=== PATIENT | female | born 1995 | race Caucasian/White ===

== ENCOUNTER 2017-07-14 17:00 | Emergency (ER) | payer OTHER ==
[~2017-07-14] VITALS: Ht 162.6 cm; Wt 48.1 kg
[~2017-07-14 17:00] MED LIST: ACET-1693 PO
[2017-07-14 17:02] VITALS: Ht 162.6 cm; Wt 48.1 kg
[2017-07-14] MEDS ORDERED: ACETAMINOPHEN IV 100 ML IV STA (17:20)
[2017-07-14] MEDS ORDERED: ONDANSETRON INJ 2 MG/ML 2 ML VIAL IV STA (17:20)
[2017-07-14] MEDS ORDERED: KETOROLAC TROMETHAMINE 30 MG/ML VIAL IV STA (17:20)
[2017-07-14] MEDS ORDERED: [UNRECOGNIZED DRUG - OTHER] PO (17:28)
[2017-07-14] MEDS ORDERED: SODIUM CHLORIDE 0.9% 1000ML 1,000 ML IV ONE ×2 (17:30→19:15)
--- NOTE | 2017-07-14 17:33 | EMERGENCY ROOM VISIT NOTE ---
History First contact with patient: 17:05 Chief Complaint: FLU LIKE SX Stated Complaint: FEVER, BOYLE History of Present Illness The patient is a 22 year old female who presents to the Emergency Room with complaints of flulike symptoms since this morning. The patient complains of a headache, body aches and a sore throat. She was seen at [facility]. An influenza and strep swab were performed and negative. She was prescribed azithromycin, which she has tried taking, but she threw it up. She has vomited 3 times today. She has not taken her temperature at home. She has also tried Tylenol, but also could not keep that down. She denies any sick contacts. She did get her influenza vaccine this year. Review of Systems 10 system review performed and negative unless noted in HPI or below Past Medical/Surgical History Medical Problems: (1) No Known Active Medical Problems (2) URI (upper respiratory infection) Family History FH: HTN (hypertension) FH: cancer FH: diabetes mellitus FH: heart disease Social History Smoking Status: Never Smoker Marital Status: single Housing Status: lives with roommate Occupation Status: [employer] student Current/Historical Medications Scheduled Ondasetron Odt (Zofran Odt), 4 MG SL Q6H Oseltamivir (Tamiflu), 75 MG PO BID Scheduled PRN Acetaminophen Tab (Tylenol), 2-3 TABS PO PRN UD PRN for Pain or Fever Miscellaneous Medications [Klavox], 625 MG PO Physical Exam Vital Signs Date Time Temp Pulse Resp B/P (MAP) Pulse Ox O2 Delivery O2 Flow Rate FiO2 07/14/17 20:57 37.1 93 18 90/57 100 07/14/17 19:09 37.4 100 18 93/47 98 Room Air 07/14/17 17:02 37.4 127 18 120/66 98 Room Air Physical Exam VITALS: Vitals are noted on the nurse's note and reviewed by myself. Vital signs stable. GENERAL: 22-year-old female, mildly acutely ill in appearance, SKIN: The skin was without rashes, erythema, edema, or bruising. HEAD: Normocephalic atraumatic. EYES: . Conjunctivae without injection, sclerae without icterus. Extraocular movements intact. MOUTH: Mucous membranes slightly dry. Tonsils are not enlarged. Pharynx without erythema or exudate. Uvula midline. Airway patent. Tongue does not deviate. NECK: Supple without nuchal rigidity. No lymphadenopathy. Cervical spine is nontender. No JVD. HEART: Slightly tachycardic, regular rhythm without murmurs gallops or rubs. LUNGS: Clear to auscultation bilaterally without wheezes, rales or rhonchi. No accessory muscle use. ABDOMEN: Positive bowel sounds x 4.Soft, nontender, without organomegaly. No guarding or rebound tenderness. MUSCULOSKELETAL: No muscle atrophy, erythema, or edema noted. Strength 5/5 throughout. NEURO: Patient was alert and oriented to person place and time. Normal sensation to touch. No focal neurological deficits. Medical Decision & Procedures ER Provider Diagnostic Interpretation: Chest x-ray IMPRESSION: No active disease in the chest. Electronically signed by: Mac Butterfield M.D. 07/14/2017 6:10 PM Dictated Date/Time: 07/14/2017 6:10 PM The status of this report is Signed. Draft = Not yet reviewed or approved by Radiologist. Signed = Reviewed and approved by Radiologist. <AttendingPhy></AttendingPhy> <FamilyPhy>[facility]</FamilyPhy> <PrimaryPhy>[facility]</PrimaryPhy> <UnitNumber>[id number]</ UnitNumber> <VisitNumber>[id number]</VisitNumber> <PatientName>JEFFERSON PANDA</PatientName> <DateOfBirth>1995</DateOfBirth> <Location>[facility]</ Location> <ServiceDate>07/14/17</ServiceDate> <MNE>ESINDI</MNE> <OrderingPhy> Ashley Blanco PA-C</OrderingPhy Laboratory Results 07/14/17 17:13 Red Blood Count 4.69, Mean Corpuscular Volume 85.3, Mean Corpuscular Hemoglobin 29.0, Mean Corpuscular Hemoglobin Concent 34.0, Mean Platelet Volume 10.3, Neutrophils (%) (Auto) 82.6, Lymphocytes (%) (Auto) 9.1, Monocytes (%) (Auto) 7.8, Eosinophils (%) (Auto) 0.0, Basophils (%) (Auto) 0.1, Neutrophils # (Auto) 7.65, Lymphocytes # (Auto) 0.84, Monocytes # (Auto) 0.72, Eosinophils # (Auto) 0.00, Basophils # (Auto) 0.01 07/14/17 17:13 Test 07/14/17 16:20 07/14/17 17:13 Influenza Type A (RT-PCR) POS for Influ A (NEG) Influenza Type B (RT-PCR) Neg for Influ B (NEG) White Blood Count 9.26 K/uL (4.8-10.8) Red Blood Count 4.69 M/uL (4.2-5.4) Hemoglobin 13.6 g/dL (12.0-16.0) Hematocrit 40.0 % (37-47) Mean Corpuscular Volume 85.3 fL (80-100) Mean Corpuscular Hemoglobin 29.0 pg (25-34) Mean Corpuscular Hemoglobin Concent 34.0 g/dl (32-36) Platelet Count 254 K/uL (130-400) Mean Platelet Volume 10.3 fL (7.4-10.4) Neutrophils (%) (Auto) 82.6 % Lymphocytes (%) (Auto) 9.1 % Monocytes (%) (Auto) 7.8 % Eosinophils (%) (Auto) 0.0 % Basophils (%) (Auto) 0.1 % Neutrophils # (Auto) 7.65 K/uL (1.4-6.5) Lymphocytes # (Auto) 0.84 K/uL (1.2-3.4) Monocytes # (Auto) 0.72 K/uL (0.11-0.59) Eosinophils # (Auto) 0.00 K/uL (0-0.5) Basophils # (Auto) 0.01 K/uL (0-0.2) RDW Standard Deviation 42.0 fL (36.4-46.3) RDW Coefficient of Variation 13.5 % (11.5-14.5) Immature Granulocyte % (Auto) 0.4 % Immature Granulocyte # (Auto) 0.04 K/uL (0.00-0.02) Urine Color YELLOW Urine Appearance CLEAR (CLEAR) Urine pH 5.5 (4.5-7.5) Urine Specific [place] 1.022 (1.000-1.030) Urine Protein NEG (NEG) Urine Glucose (UA) NEG (NEG) Urine Ketones 2+ (NEG) Urine Occult Blood NEG (NEG) Urine Nitrite NEG (NEG) Urine Bilirubin NEG (NEG) Urine Urobilinogen NEG (NEG) Urine Leukocyte Esterase NEG (NEG) Urine Test NEG (NEG) Anion Gap 7.0 mmol/L (3-11) Est Creatinine Clear Calc Drug Dose 79.2 ml/min Estimated GFR () 112.7 Estimated GFR (Non- 97.3 BUN/Creatinine Ratio 10.6 (10-20) Calcium Level 8.9 mg/dl (8.5-10.1) Total Bilirubin 0.8 mg/dl (0.2-1) Aspartate Amino Transf (AST/SGOT) 15 U/L (15-37) Alanine Aminotransferase (ALT/SGPT) 17 U/L (12-78) Alkaline Phosphatase 62 U/L (45-117) Total Protein 8.5 gm/dl (6.4-8.2) Albumin 4.5 gm/dl (3.4-5.0) Globulin 4.0 gm/dl (2.5-4.0) Albumin/Globulin Ratio 1.1 (0.9-2) Medications Administered Medications (Trade) Dose Ordered Sig/Christoph Route Start Time Stop Time Status Last Admin Dose Admin Sodium Chloride 1,000 ml @ 999 mls/hr Q1H1M ONCE IV 07/14/17 17:30 07/14/17 18:30 DC 07/14/17 17:40 999 MLS/HR Ondansetron HCl (Zofran Inj) 4 mg NOW STAT IV 07/14/17 17:20 07/14/17 17:22 DC 07/14/17 17:40 4 MG Acetaminophen 100 ml @ 400 mls/hr ONE STAT IV 07/14/17 17:20 07/14/17 17:34 DC 07/14/17 17:41 400 MLS/HR Ketorolac Tromethamine (Toradol Inj) 30 mg NOW STAT IV 07/14/17 17:20 07/14/17 17:22 DC 07/14/17 17:40 30 MG Sodium Chloride 1,000 ml @ 999 mls/hr Q1H1M ONCE IV 07/14/17 19:15 07/14/17 20:15 DC 07/14/17 19:14 999 MLS/HR Oseltamivir Phosphate (Tamiflu Cap) 75 mg NOW STAT PO 07/14/17 19:23 07/14/17 19:24 DC 07/14/17 19:34 75 MG Ondansetron HCl (ZOFRAN ODT 4MG Home Pack) 1 homepack UD ONCE PO 07/14/17 20:30 07/14/17 20:31 DC 07/14/17 20:52 1 HOMEPACK ED Course VITALS: Vitals are noted on the nurse's note and reviewed by myself. Vital signs stable. Patient was seen and examined Vital signs including blood pressure were reviewed medications list was verified with patient Labs were obtained, and a saline lock was established The patient was medicated with Toradol 30 mg IV and Tylenol 1000 mg IV. She was also given Zofran 4 mg IV. She was hydrated with 1 L of normal saline. Upon reevaluation, the patient was feeling much better. We discussed results. She voiced understanding. Sge was hydrated with an additional 1 L of normal saline She was given 1 dose of Tamiflu 75 mg. She was also given a home pack of Zofran. She was comfortable being discharged home as she was tolerating fluids. I reviewed discharge instructions the patient. They voiced understanding and had no further questions. Medical Decision Differential diagnosis: Bronchitis, pneumonia, strep pharyngitis, viral pharyngitis, influenza This patient is a 22-year-old female presents to the emergency department with flulike symptoms. On exam, she was mildly acutely ill and dehydrated. Her workup reveals a positive influenza A, which explained her symptoms. The patient is not hypoxic. She had good symptomatic relief in the emergency department. I believe she is stable to be discharged home on Tamiflu. She was also given a home pack of Zofran. She is comfortable with this plan. She will follow up with [facility] if there is no improvement in the next 3 days. She agrees to return to the emergency department with worsening symptoms. This chart was completed in part utilizing [employer] Speech Voice Recognition software. Attempts were made to minimize the grammatical errors, random word insertions, pronoun errors and incomplete sentences. Any formal questions or concerns about the content, text or information contained within the body of this dictation should be directly addressed to the provider for clarification. Medication Reconcilliation Current Medication List: was personally reviewed by me Blood Pressure Screening Patient's blood pressure: Normal blood pressure Impression Primary Impression: Influenza A Departure Information Dispostion Home / Self-Care Condition GOOD Prescriptions Ondasetron Odt (ZOFRAN ODT) 4 Mg Tab 4 MG SL Q6H for Nausea, #20 TAB Prov: Ashley Blanco PA-C 07/14/17 Oseltamivir (Tamiflu) 75 Mg Cap 75 MG PO BID for 5 Days, #10 CAP Prov: Ashley Blanco PA-C 07/14/17 Referrals [facility] (PCP) Patient Instructions ED Influenza Ch, My [facility] Additional Instructions You have been diagnosed with influenza A. This is a virus. Antibiotics will not help. Please stop the azithromycin. Please take the entire course of Tamiflu Please take Zofran 1 tab under the tongue every 6 hours as needed for nausea Ibuprofen 600 mg and/or Tylenol 1000 mg every 8 hours. You may also alternate these medications for more effective pain relief: Ibuprofen --4 HRS--> Tylenol --4 HRS--> ibuprofen --4 HRS--> Tylenol .... It is very important to stay well-hydrated. Please increase fluids over the next several days. This is a fairly contagious virus. Please avoid public places for at least the next 3 days. Wash hands frequently. Please follow-up with [facility] services within the next 5 days if there is no improvement Please do not hesitate to return to the emergency department with any new, worsening or concerning symptoms; especially, difficulty breathing It was a pleasure participating in your care tonight School Instructions Return To School: 3 days
[2017-07-14 17:39] LABS: ALBUMIN 4.5 gm/dl (3.4-5.0); CALCIUM 8.9 mg/dl (8.5-10.1); CREATININE 0.86 mg/dl (0.60-1.20); POTASSIUM 3.5 mmol/L (3.5-5.1)
[2017-07-14 17:42] LABS: BASO % 0.1 %; BASO ABS # 0.01 K/uL (0-0.2); HEMOGLOBIN 13.6 g/dL (12.0-16.0); IG# 0.04 K/uL (0.00-0.02); LYMPH % 9.1 %; LYMPH ABS # 0.84 K/uL (1.2-3.4); MEAN CELL VOLUME 85.3 fL (80-100); MEAN PLATELET VOLUME 10.3 fL (7.4-10.4); MONO % 7.8 %; MONO ABS # 0.72 K/uL (0.11-0.59); NEUT % 82.6 %; NEUT ABS # 7.65 K/uL (1.4-6.5); PLATELET COUNT 254 K/uL (130-400); RED CELL DISTRIBUTION WIDTH CV 13.5 % (11.5-14.5); TOTAL PROTEIN 8.5 gm/dl (6.4-8.2); WHITE BLOOD COUNT 9.26 K/uL (4.8-10.8)
--- NOTE | 2017-07-14 18:11 | DIAGNOSTIC IMAGING REPORT ---
CHEST ONE VIEW PORTABLE CLINICAL HISTORY: fever COMPARISON STUDY: 07/25/2015 FINDINGS: The cardiac and mediastinal contours are normal. There is no evidence of focal pulmonary consolidation. There is no evidence of failure. No pleural effusions are visualized.[ IMPRESSION: No active disease in the chest. Electronically signed by: Mac Butterfield M.D. 07/14/2017 6:10 PM Dictated Date/Time: 07/14/2017 6:10 PM
[2017-07-14 19:03] LABS: INFLUENZA A PCR POS for Influ A (NEG); INFLUENZA B PCR Neg for Influ B (NEG)
[2017-07-14] MEDS ORDERED: OSELTAMIVIR PHOSPHATE 75 MG CAP PO STA (19:23)
[2017-07-14] MEDS ORDERED: ONDA4TAB10 SL (20:27)
[2017-07-14] MEDS ORDERED: OSEL75CA12 PO (20:27)
[2017-07-14] MEDS ORDERED: ONDANSETRON HOME PACK 4MG OD TAB PO ONE (20:30)
[2017-07-14 20:57] VITALS: BP 90/57; PULSE 93; TEMP 37.1; O2SAT 100
== END 2017-07-14 20:55 | disposition home or self-care (01) ==
LOC: C.EDB 17:01 → C.EDC 20:55
DX: J10.1 Influenza due to other identified influenza virus with other respiratory manifestations (principal); I10 Essential (primary) hypertension; Z83.3 Family history of diabetes mellitus; Z82.49 Family history of ischemic heart disease and other diseases of the circulatory system

== ENCOUNTER 2017-12-12 09:50 | Emergency (ER) | payer OTHER ==
[~2017-12-12] VITALS: Ht 165.1 cm; Wt 50.0 kg
[2017-12-12 09:46] VITALS: TEMP 36.8; Ht 165.1 cm; Wt 50.0 kg
[~2017-12-12 09:50] MED LIST changes: +ONDA4TAB10 SL; +[UNRECOGNIZED DRUG - OTHER] PO
[2017-12-12] MEDS ORDERED: hydrOXYzine HCL 25 MG TAB PO STA (10:03)
[2017-12-12 11:17] LABS: HEMATOCRIT 38.6 % (37-47); HEMOGLOBIN 13.4 g/dL (12.0-16.0); MEAN CELL VOLUME 83.5 fL (80-100); MEAN CORPUSCULAR HGB CONC 34.7 g/dl (32-36); MEAN PLATELET VOLUME 10.3 fL (7.4-10.4); PLATELET COUNT 245 K/uL (130-400); WHITE BLOOD COUNT 6.63 K/uL (4.8-10.8)
[2017-12-12 11:40] VITALS: BP 110/76; PULSE 60; O2SAT 98
[2017-12-12 11:58] LABS: ALBUMIN 4.3 gm/dl (3.4-5.0); CALCIUM 8.8 mg/dl (8.5-10.1); CREATININE 0.73 mg/dl (0.60-1.20); POTASSIUM 3.5 mmol/L (3.5-5.1); TOTAL PROTEIN 7.9 gm/dl (6.4-8.2)
[2017-12-12] MEDS ORDERED: HYDR25CA PO (12:11)
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
== END 2017-12-12 12:10 | disposition home or self-care (01) ==
LOC: EDBD 09:50 → C.EDA 09:53
DX: F41.0 Panic disorder [episodic paroxysmal anxiety] (principal)